=== PATIENT | female | born 1990 | race Caucasian/White ===

== ENCOUNTER 2018-05-19 11:10 | Observation (INO) | payer BC ==
[2018-05-19 11:45] LABS: BASOPHIL % 0.1 % (0.0-0.4); Basophil (Absolute #) 0.01 (0-0.4); Eosinophil % 0.8 % (0.00-5.0); Eosinophil (Absolute #) 0.08 (0-0.5); Granulocyte Absolute (ANC) 7.29 (1.4-6.9); Granulocytes % 77.2 % (36.0-66.0); Hematocrit 36.5 % (35-47); Hemoglobin 12.3 gm/dl (12.0-16.0); Lymphocyte (Absolute #) 1.27 (1.0-4.6); Lymphocytes % 13.5 % (24.0-44.0); Mean Cell Volume 85.7 fl (78-100); Mean Corpuscular Hemoglobin 28.9 pg (26-32); Mean Corpuscular Hgb Concent. 33.7 g/dl (32-36); Mean Platelet Volume 11.1 fl (6-9.5); Monocyte (Absolute #) 0.79 (0.0-1.3); Monocytes % 8.4 % (0.0-12.0); Platelet Count 263 K/mm3 (150-450); Red Blood Count 4.26 M/mm3 (4.1-5.4); Red Cell Distribution Width 14.8 % (11.5-14.0); White Blood Count 9.4 K/mm3 (4.0-10.5)
[2018-05-19 12:03] LABS: ALBUMIN 3.4 g/dL (3.5-5.0); ALKALINE PHOSPHATASE 100 U/L (38-126); ANION GAP 10.9 MEQ/L (5-15); BLOOD UREA NITROGEN 9 mg/dL (7-17); CHLORIDE 106 mmol/L (98-107); Calcium 9.6 mg/dL (8.4-10.2); Carbon Dioxide 24 mmol/L (22-30); Creatinine 1 0.58 mg/dL (0.52-1.04); Glucose 97 mg/dL (74-106); Potassium 3.9 mmol/L (3.5-5.1); SGOT/AST 14 U/L (14-36); SGPT/ALT 11 U/L (0-35); SODIUM 137 mmol/L (137-145); Uric Acid 5.2 mg/dL (2.6-6.0)
[2018-05-19 12:40] VITALS: PULSE 85
[2018-05-19 12:44] LABS: Appearance HAZY (CLEAR); Bilirubin NEGATIVE (NEGATIVE); Blood NEGATIVE Ery/ul (0-5); Glucose NEGATIVE (NEGATIVE); Ketones NEGATIVE (NEGATIVE); Leukocyte Esterase 1+ (NEGATIVE); Nitrite NEGATIVE (NEGATIVE); Protein,Urine Dip NEGATIVE (Negative); Urobilinogen 1 mg/dL (0-1)
[2018-05-19 12:45] LABS: Amourphous Crystal FEW /HPF (NEGATIVE); Bacteria MODERATE /HPF (NEGATIVE); Epithelial Cells MANY /HPF (FEW); RBC 0-2 /HPF (0-2)
[2018-05-19 14:51] VITALS: BP 123/75
== END 2018-05-19 13:55 | disposition home or self-care (01) ==
LOC: UNDOADMOB 11:10 → OB 11:10 → UNDODISOB 13:55
PROVIDERS: ADMIT Family Medicine; ATTEND Family Medicine
DX: Z34.83 Encounter for supervision of other normal pregnancy, third trimester (principal)
CPT/HCPCS: 36415; 80053; 81000; 84550; 85025; G0378; 59025

== ENCOUNTER 2018-05-21 02:52 | Observation (INO) | payer BC ==
[2018-05-21 03:38] VITALS: BP 126/68; PULSE 106
== END 2018-05-21 04:50 | disposition home or self-care (01) ==
LOC: ED 02:52 → OB 03:02 → UNDOADMOB 03:02 → UNDODISOB 04:50 → EDSTATUS 16:57
PROVIDERS: ADMIT Family Medicine; ATTEND Family Medicine
DX: Z34.83 Encounter for supervision of other normal pregnancy, third trimester (principal)
CPT/HCPCS: G0378

== ENCOUNTER 2018-05-25 04:31 | Inpatient (IN) | payer BC ==
[2018-05-25] MEDS ORDERED: Dulcolax 10 MG SUPP PR PRN (04:40)
[2018-05-25] MEDS ORDERED: Anucort-HC SUPPOSITORY PR PRN (04:40)
[2018-05-25] MEDS ORDERED: Adacel Vial IM ONE (04:40)
[2018-05-25] MEDS ORDERED: Dermoplast Spray TP PRN (04:40)
[2018-05-25] MEDS ORDERED: TUCKS TP PRN (04:40)
[2018-05-25] MEDS ORDERED: LANSINOH 40 GM TOP PRN (04:40)
[2018-05-25] MEDS ORDERED: CORTISONE 1% CREAM TP PRN (04:40)
[2018-05-25] MEDS ORDERED: CLARITIN 10 MG PO PRN (04:44)
[2018-05-25] MEDS ORDERED: Zofran 4 MG/2 ML VIAL IV PRN (04:44)
[2018-05-25] MEDS ORDERED: PERCOCET TABLET 5/325MG PO PRN (04:44)
[2018-05-25] MEDS ORDERED: HOLD NARCOTIC ANALGESICS AND SEDATIVES X24 HR MC PRN (04:44)
[2018-05-25] MEDS ORDERED: Nubain 10 MG/ML IV PRN (04:44)
[2018-05-25] MEDS ORDERED: Sodium Chloride 0.9% 10 ML FLUSH Syringe IJ PRN (04:44)
[2018-05-25] MEDS ORDERED: MORPHINE SULFATE 2 MG INJ IV PRN (04:44)
[2018-05-25] MEDS ORDERED: BENADRYL 50 MG/ML IV PRN (04:44)
[2018-05-25] MEDS ORDERED: Narcan 0.4 MG/ML IV PRN (04:44)
[2018-05-25] MEDS ORDERED: Reglan 10 MG/2 ML IV SCH (04:45)
[2018-05-25] MEDS ORDERED: Pepcid 20 MG VIAL IV SCH (04:45)
[2018-05-25] MEDS ORDERED: BICITRA 30 ML CUP PO SCH (04:45)
[2018-05-25] MEDS ORDERED: Lactated Ringers 1,000 ML IV SCH ×2 (05:00)
[2018-05-25] MEDS ORDERED: CEFAZOLIN 2 GM-D5W BAG** 2 GM/50 ML ML IV SCH (05:00)
[2018-05-25 05:43] LABS: Hematocrit 40.6 % (35-47); Hemoglobin 13.4 gm/dl (12.0-16.0); Mean Cell Volume 85.1 fl (78-100); Mean Corpuscular Hemoglobin 28.1 pg (26-32); Mean Platelet Volume 11.5 fl (6-9.5); Platelet Count 270 K/mm3 (150-450); Red Blood Count 4.77 M/mm3 (4.1-5.4); Red Cell Distribution Width 15.1 % (11.5-14.0); White Blood Count 10.6 K/mm3 (4.0-10.5)
[2018-05-25 05:46] LABS: INR 0.95 (0.8-3.0)
[2018-05-25 05:59] LABS: PTT 24.2 SECONDS (25.3-37.0)
[2018-05-25 06:44] LABS: Appearance CLEAR (CLEAR); Bilirubin NEGATIVE (NEGATIVE); Blood NEGATIVE Ery/ul (0-5); Glucose NEGATIVE (NEGATIVE); Ketones NEGATIVE (NEGATIVE); Leukocyte Esterase NEGATIVE (NEGATIVE); Nitrite NEGATIVE (NEGATIVE); Protein,Urine Dip NEGATIVE (Negative); Specific Gravity 1.015 (1.005-1.025); Urobilinogen NORMAL mg/dL (0-1)
[2018-05-25 06:45] LABS: Amphetamine,Urine NEGATIVE (NEGATIVE); Barbiturate,Urine NEGATIVE (NEGATIVE); Benzodiazepine,Urine NEGATIVE (NEGATIVE); Cocaine,Urine NEGATIVE (NEGATIVE); Methadone,Urine NEGATIVE (NEGATIVE); Opiate,Urine NEGATIVE (NEGATIVE); PCP,Urine NEGATIVE (NEGATIVE); THC,Urine NEGATIVE (NEGATIVE)
[2018-05-25 06:50] LABS: ABO TYPING A; RH TYPING POSITIVE
[2018-05-25 06:51] LABS: Antibody Screen POSITIVE (NEGATIVE)
[2018-05-25] MEDS: Dextrose 5%-Lr IV Solution 1000 ML 1,000 ML IV SCH ×2 (11:04→19:37)
--- NOTE | 2018-05-25 11:21 | OP ---
SURGERY DATE/TIME: 05/25/2018 0735 PREOPERATIVE DIAGNOSES: 1) Mild preeclampsia. 2) Gestational diabetes, diet controlled. 3) Desires permanent sterilization. POSTOPERATIVE DIAGNOSES: 1) Mild preeclampsia. 2) Gestational diabetes, diet controlled. 3) Desires permanent sterilization. PROCEDURE: Repeat low transverse section with bilateral tubal ligation. SURGEON: Santana Schulte M.D. ESTIMATED BLOOD LOSS: 400 cc. URINE OUTPUT: 600 cc of clear straw-colored urine. ANESTHESIA: Spinal by Noe Veronica CRNA. SPECIMENS: Placenta was sent for pathology. DESCRIPTION OF PROCEDURE: After informed written consent was obtained, the patient was taken to the operating room. She underwent spinal anesthesia and was prepped and draped in the usual sterile fashion. After adequate level of anesthesia was assessed, a low transverse skin incision was made by knife and carried down through the subcutaneous fat to the level of the fascia which was nicked on both sides of the midline. Fascial incision was extended horizontal using curved Oquendo scissors. Next, the superior free edge of the fascia was grasped with Ela clamps and the underlying rectus muscles were dissected free. The same was repeated inferiorly. The peritoneal cavity was opened bluntly and extended in horizontal fashion. Bladder blade was inserted and a bladder flap reflected over the lower uterine segment. A horizontal uterine incision was made by knife and carried down to the level of the amniotic membranes which were carefully artificially ruptured extended horizontal bluntly and then a viable male delivered from the vertex presentation with strong cry immediately upon delivery. The cord was clamped and cut and he was handed off to the awaiting nursery team after oropharynx and nares were bulb suctioned clean. The uterus was then exteriorized and the placenta was manually removed from the uterine cavity. The uterine cavity was sponge curetted clean with lap sponge. The uterus was closed with #1 chromic in a running locked fashion with good closure and good hemostasis. Next, the left fallopian tube was identified and grasped with Yash. A window was made in the mesosalpinx with electrocautery. Proximal and distal segments of the tube were then ligated with chromic suture and the interceding tube segments were dissected free with Metzenbaum scissors. The free edge of the tube was cauterized with electrocautery on both sides. The same was repeated on the right side with no complications. The posterior cul-de-sac was wiped free of blood and clot with a moist lap sponge. The uterus was returned to the peritoneal cavity. Lateral gutters were wiped free of blood and clot. The uterine incision was inspected and noted to be hemostatic after a figure-of-8 suture was placed in the center of the suture line due to some mild oozing there. Next, the fascia was closed with 0 Vicryl in a running fashion with good closure and good hemostasis were achieved. The subcutaneous fat was irrigated with warm, sterile saline and any areas of bleeding were cauterized with electrocautery. Finally the skin was closed with 4-0 undyed Vicryl in a running subcuticular fashion. Steri-Strips and occlusive dressing were placed over the incision. The patient was transferred to the recovery in excellent condition.
[2018-05-25] MEDS ORDERED: TORAdol 30 mg Injection IJ ONE (15:47)
[2018-05-25] MEDS ORDERED: Naropin 0.5% 30 ML VIAL IJ ONE (15:47)
[2018-05-25] MEDS ORDERED: Zofran 4 MG/2 ML VIAL IV ONE (15:47)
[2018-05-25] MEDS ORDERED: Ephedrine Sulfate 50 MG/ML IJ ONE (15:47)
[2018-05-25] MEDS ORDERED: LIDOCAINE HCL 2% 100 MG/5 ML IJ ONE (15:47)
[2018-05-25] MEDS ORDERED: Pitocin 10 UNITS/ML IV ONE (15:47)
[2018-05-25] MEDS ORDERED: Decadron 4 MG INJ IV ONE (15:47)
[2018-05-25] MEDS ORDERED: SUBLIMAZE 100 MCG/2 ML IV ONE (15:51)
[2018-05-25] MEDS ORDERED: Versed 2 MG/2 ML Injection IV ONE (15:51)
[2018-05-25] MEDS ORDERED: Astramorph-Pf 5 MG/10 ML IJ ONE (15:51)
[2018-05-25] MEDS: TYLENOL EXTRA STRENGTH 500 MG PO PRN (19:37)
[2018-05-25] MEDS: Colace 100 MG PO SCH (22:12)
[2018-05-26] MEDS ORDERED: Ambien 10 MG PO PRN (04:40)
[2018-05-26] MEDS ORDERED: NORCO 5/325 MG PO PRN (04:40)
[2018-05-26] MEDS ORDERED: Restoril 15 MG PO PRN (04:40)
[2018-05-26] MEDS: MOTRIN 400 MG PO PRN ×2 (05:40→17:05)
[2018-05-26 05:50] VITALS: O2SAT 97
[2018-05-26 05:59] LABS: BASOPHIL % 0.1 % (0.0-0.4); Basophil (Absolute #) 0.01 (0-0.4); Eosinophil % 0.2 % (0.00-5.0); Eosinophil (Absolute #) 0.02 (0-0.5); Granulocyte Absolute (ANC) 9.77 (1.4-6.9); Granulocytes % 79.5 % (36.0-66.0); Hematocrit 32.3 % (35-47); Hemoglobin 10.6 gm/dl (12.0-16.0); Lymphocyte (Absolute #) 1.43 (1.0-4.6); Lymphocytes % 11.7 % (24.0-44.0); Mean Cell Volume 87.1 fl (78-100); Mean Corpuscular Hgb Concent. 32.8 g/dl (32-36); Mean Platelet Volume 11.2 fl (6-9.5); Monocyte (Absolute #) 1.04 (0.0-1.3); Monocytes % 8.5 % (0.0-12.0); Platelet Count 230 K/mm3 (150-450); Red Blood Count 3.71 M/mm3 (4.1-5.4); White Blood Count 12.3 K/mm3 (4.0-10.5)
[2018-05-26 06:06] LABS: Mean Corpuscular Hemoglobin 28.5 pg (26-32)
[2018-05-26] MEDS: Colace 100 MG PO SCH ×2 (09:49→21:13)
[2018-05-26] MEDS: FERREX 150 PO SCH (09:49)
[2018-05-26] MEDS: Mylicon 80MG PO PRN (09:57)
[2018-05-26] MEDS ORDERED: Adacel Vial IM ONE (14:00)
[2018-05-26] MEDS: TYLENOL EXTRA STRENGTH 500 MG PO PRN ×2 (14:23→23:00)
[2018-05-26 14:24] LABS: AB ID Interp Anti-S
[2018-05-27] MEDS: Mylicon 80MG PO PRN (00:13)
[2018-05-27] MEDS: MOTRIN 400 MG PO PRN (09:02)
[2018-05-27] MEDS: FERREX 150 PO SCH (09:02)
[2018-05-27] MEDS: Colace 100 MG PO SCH (09:04)
[2018-05-27 09:30] VITALS: BP 113/58; PULSE 86
--- NOTE | 2018-05-27 11:00 | PCM.DS ---
Discharge Summary Date of Admission: 05/25/18 04:31 Admitting Physician: DES MON Consults: Consults on Case 05/25/18 04:35 Notify Physician OF ADMISSION 05/25/18 04:44 Notify Anesthesia Provider Primary Care Provider: DES MON Allergies Allergies No Known Drug Allergies Allergy (Unverified 05/19/18 13:05) Hospital Summary - Hospital Course Hospital Course: patient was admitted for repeat and tubal ligation. anti-S antibodies identified, were not present earlier in the . - Vitals & Intake/Output Vital Signs: Vital Signs Temperature 97.6 F 05/27/18 08:00 Pulse Rate 86 05/27/18 08:00 Respiratory Rate 18 05/27/18 08:00 Blood Pressure 113/58 05/27/18 08:00 O2 Sat by Pulse Oximetry 97 05/26/18 05:15 Intake & Output: Intake & Output 05/24/18 05/25/18 05/26/18 05/27/18 11:59 11:59 11:59 11:59 Intake Total 4141 820 Output Total 2100 Balance 2041 820 Weight 110.677 kg - Lab Result Diagrams: 05/26/18 05:25 Lab Results-Last 24 Hrs: Lab Results-Last 24 Hours 05/25/18 Range/Units 05:00 Reporting Documentation See Result Note: Antibody ID 1 Off-Site Anti-S Micro Results-Entire Visit: Microbiology 05/25/18 08:21 Urine Culture - Final Urine, Catheterized <10K NORMAL SKIN RANDI PROBABLE SKIN CONTAMINANT - Procedures and Test Procedures and Tests throughout Hospitalization: Therapy Orders & Screens 05/25/18 08:21 Standby Routine Comment: Diagnosis: REPEAT Discharge Exam General Appearance: no apparent distress, alert Respiratory Exam: normal breath sounds, lungs clear, No respiratory distress Cardiovascular Exam: regular rate/rhythm, normal heart sounds Gastrointestinal/Abdomen Exam: soft, other (incision clean,dry, intact), No tenderness, No mass Extremity Exam: normal inspection, normal range of motion Final Diagnosis/Problem List - Final Discharge Diagnosis/Problem (1) delivery delivered Current Visit: Yes Status: Acute (2) Tubal ligation status Current Visit: Yes Status: Acute - Discharge Disposition: Home, Self-Care Condition: Stable Prescriptions: New Hydrocodone Bit/Acetaminophen [[place] 5-325 Tablet] 1 each PO Q4-6HPRN PRN # 20 tablet MDD 6 PRN Reason: Pain Follow up with: DES MON MD [Primary Care Provider] - 1 Week
== END 2018-05-27 11:50 | disposition home or self-care (01) | DRG 766 ==
LOC: OB 04:31
PROVIDERS: ADMIT Family Medicine; ATTEND Family Medicine
PROC: 10D00Z1 Extraction of Products of Conception, Low, Open Approach (ICD-10-PCS; principal; 2018-05-25)
PROC: 0UL70ZZ Occlusion of Bilateral Fallopian Tubes, Open Approach (ICD-10-PCS; 2018-05-25)
DX: O14.04 Mild to moderate pre-eclampsia, complicating childbirth (principal); O24.420 Gestational diabetes mellitus in childbirth, diet controlled; Z3A.37 37 weeks gestation of pregnancy; Z37.0 Single live birth; Z30.2 Encounter for sterilization
CPT/HCPCS: 36415; 64488; 76937; 76942; 80307; 81002; 82962; 85025; 85027; 85610; 85730; 86850; 86870; 86900; 86901; 86905; 87086; 88302; 88307; 88720; 90715; 92586; 94250; 94799; 96372; G0010; J0690; J1100; J1885; J2250; J2274; J2405; J2590; J2795; J3010; L0625; A9270-GY